=== PATIENT | female | born 1990 | race Caucasian/White ===

== ENCOUNTER 2019-07-16 23:56 | Emergency (ER) | payer SELFPAY ==
[~2019-07-16] VITALS: Ht 165.1 cm; Wt 111.6 kg
[2019-07-17 00:03] VITALS: BP 155/78; Ht 165.1 cm; Wt 111.6 kg
== END 2019-07-17 01:20 | disposition home or self-care (01) ==
LOC: ED 23:56
DX: T78.49XA Other allergy, initial encounter (principal); X58.XXXA Exposure to other specified factors, initial encounter
CPT/HCPCS: J2930; Q0163

== ENCOUNTER 2020-07-13 10:59 | Emergency (ER) | payer MEDICAID ==
[~2020-07-13] VITALS: Ht 165.1 cm; Wt 125.2 kg
[2020-07-13 11:09] VITALS: Ht 165.1 cm; Wt 125.2 kg
[2020-07-13 12:01] LABS: BASOPHIL % 0.4 % (0-2); PLATELET COUNT 237 x10^3mcL (130-400)
[2020-07-13 12:24] LABS: CALCIUM 8.6 mg/dL (8.5-10.1); CARBON DIOXIDE 22.8 mmol/L (21-32); CHLORIDE SERUM 104 mmol/L (98-107); CREATININE SERUM 0.7 mg/dL (0.6-1.0); GFR1 > 60 mL/min; GLUCOSE SERUM 111 mg/dL (74-106); SODIUM SERUM 138 mmol/L (136-145)
[2020-07-13 12:27] LABS: RED CELL DISTRIBUTION WIDTH 19.4 % (11.5-14.5)
[2020-07-13 12:28] LABS: rbc morphology (normal/abnorm) ABNORMAL (NORMAL)
[2020-07-13 12:30] LABS: ALBUMIN 3.5 g/dL (3.4-5.0); ALKALINE PHOSPHATASE 98 U/L (46-116); ALT/SGPT 304 U/L (14-59); AST/SGOT 245 U/L (15-37); BILIRUBIN TOTAL 0.29 mg/dL (0.20-1.00); LIPASE 244 IU/L (73-393); TOTAL PROTEIN, SERUM 8.1 g/dL (6.4-8.2)
[2020-07-13 13:07] VITALS: BP 143/82
== END 2020-07-13 13:07 | disposition home or self-care (01) ==
LOC: ED 10:59
PROVIDERS: Emergency Medicine
DX: B34.9 Viral infection, unspecified (principal); R11.10 Vomiting, unspecified
CPT/HCPCS: J2405; J7030